=== PATIENT | female | born 1980 | race Caucasian/White ===

== ENCOUNTER → 2019-09-03 | Outpatient (CLI) | payer OTHER ==
[2019-09-03 13:25] LABS: ABSOLUTE RETIC # 55 10e9/L (24-90); RETICULOCYTE % 1.11 % (0.50-2.40)
[2019-09-03 13:36] LABS: BAND NEUTROPHILS 1 %; BASOPHILS % (MANUAL) 1 %; EOSINOPHILS % (MANUAL) 6 %; LYMPHOCYTES % (MANUAL) 41 %; MONOCYTES % (MANUAL) 3 %; NEUTROPHILS % (MANUAL) 48 %; RBC MORPH NORMAL
== END ==
LOC: GIR 13:16
PROVIDERS: ATTEND Family Medicine
DX: D72.829 Elevated white blood cell count, unspecified (principal)
CPT/HCPCS: 85007; 85045